=== PATIENT | male | born 1950 | race Caucasian/White ===

== ENCOUNTER → 2022-11-14 07:45 | Outpatient (CLI) | payer MEDICARE, OTHER, SELFPAY ==
--- NOTE | 2022-11-14 07:47 | DI.US.S_ITS ---
PROCEDURE: US SCROTUM INDICATIONS: cyst on both testicles TECHNIQUE: Real-time scanning was performed of the scrotum and testicles, with image documentation. Color and pulse Doppler interrogation was performed of both testicles. COMPARISON: None. FINDINGS: Right: Testicle is normal in size at 3.9 x 2.1 x 2.6 cm. Simple appearing are present the largest measuring 10 x 7 x 9 mm. Epididymis is normal in overall size and morphology. No hydrocele or varicoceles. Overlying scrotal skin is normal in thickness. Left: Testicle is normal in size at 3.0 x 2.1 x 2.3 cm. Minimally complex cyst as well as septated cysts are identified measuring 14 x 11 x 14 mm and 12 x 8 x 11 mm respectively. There is no increased vascularity. Epididymis demonstrates multiple cysts the largest measuring 7 mm. No varicoceles. Spermatocele is present. Overlying scrotal skin is normal in thickness. Doppler: Color and pulse Doppler demonstrate normal and symmetric arterial flow in both testicles. IMPRESSION: Multiple bilateral testicular cysts as above. Dictated by: Kerri Charles M.D. on 11/14/2022 at 16:24 Approved by: Kerri Charles M.D. on 11/14/2022 at 16:26
[2022-11-14 09:33] LABS: Lactate Dehydrogenase 151 U/L (120-246)
[2022-11-15 07:34] LABS: Alpha Fetoprotein 5.4 ng/mL (0.0-8.4)
[2022-11-16 14:58] LABS: PSA, Total 4.3 ng/mL (0.0-4.0)
== END ==
PROVIDERS: PCP Family Medicine; Referring Provider Specialist; Visit Provider Specialist
DX: N44.2 Benign cyst of testis (principal); N40.1 Benign prostatic hyperplasia with lower urinary tract symptoms; N13.8 Other obstructive and reflux uropathy; R97.20 Elevated prostate specific antigen [PSA]; R39.89 Other symptoms and signs involving the genitourinary system
CPT/HCPCS: 36415; 76870; 82105; 83615; 84153; 84154